=== PATIENT | male | born 1960 | race Caucasian/White ===

== ENCOUNTER 2017-07-25 07:13 | Inpatient (IN) | payer OTHER ==
[~2017-07-25 07:13] MED LIST: ACETAMINOPHEN 1,000 MG/100 ML BTL IV ONE; CEFAZOLIN 2 Gram 2 GM/50 ML BAG IVPB ONE; CELECOXIB 100 MG CAPSULE PO ONE; FAMOTIDINE 20MG TABLET PO ONE; MECLIZINE 25 MG TABLET PO ONE; METOCLOPRAMIDE 10 MG TABLET PO ONE
[2017-07-25] MEDS: RINGERS SOLUTION,LACTATED 1,000 ML IV SCH (11:30)
[2017-07-25] MEDS ORDERED: SENNOSIDES/DOCUSATE SODIUM UD CAPSULE PO PRN (11:30)
[2017-07-25] MEDS ORDERED: ONDANSETRON HCL IV 4 MG/2 ML VIAL IVP PRN (11:30)
[2017-07-25] MEDS ORDERED: METOCLOPRAMIDE HCL 10 MG/2 ML VIAL IVP PRN (11:30)
[2017-07-25] MEDS ORDERED: OXYCODONE HCL 5 MG TABLET PO PRN (11:30)
[2017-07-25] MEDS ORDERED: ZOLPIDEM TARTRATE 5 MG TABLET PO PRN (11:30)
[2017-07-25] MEDS ORDERED: TRAMADOL HCL 50 MG TABLET PO PRN ×2 (11:30)
[2017-07-25] MEDS ORDERED: AL HYDROX/MAG HYDROX 30ML UD PO PRN (11:30)
[2017-07-25] MEDS ORDERED: MAGNESIUM HYDROXIDE 30 ML UDC PO PRN (11:30)
[2017-07-25] MEDS: DIPHENHYDRAMINE HCL 25 MG CAPSULE PO PRN (12:49)
[2017-07-25] MEDS ORDERED: TRANEXAMIC ACID 1,000 MG in 0.9 % SODIUM CHLORIDE 100ML 100 ML IVPB ONE (13:00)
[2017-07-25] MEDS ORDERED: RINGERS SOLUTION,LACTATED 1,000 ML IV PRN (14:29)
[2017-07-25] MEDS: ACETAMINOPHEN 1,000 MG/100 ML BTL IV SCH ×2 (14:58→19:44)
--- NOTE | 2017-07-25 15:52 | Rehab Evaluation ---
Patient Information - Patient Information Diagnosis: OA right knee Ordered Treatment: PT Evaluate and Treat Status: Initial Evaluation Surgery: Yes (TKA right) Date of Surgery: 07/25/17 Past Medical/Surgical Hx: PAST MEDICAL/SURGICAL HISTORY Past Surgical History gastric sleeve sx; cholecystectomy; appy; right knee ACL. PMH - Respiratory Hx Respiratory Disorders Yes Hx Sleep Apnea No: negative tsting Hx of URI Yes PMH - Cardiovascular Hx Cardiovascular Disorders No Exercise Tolerance Good PMH - Neuro Hx Neurological Disorders No PMH - GI Hx Gastrointestinal Disorders Yes Hx Weight Loss/Weight Gain Yes: 20 lbs recent PMH - Hx Genitourinary Disorders No PMH - Endocrine Hx Endocrine Disorders No PMH - Musculoskeletal Hx Musculoskeletal Disorders Yes Hx Arthritis Yes PMH - Psych Hx Psychiatric Problems Yes Hx Anxiety Yes: anxiety nightmares PMH - Hematology/Oncology Hx Hematology/Oncology No Disorders Precautions: [place], Fall - Time With Patient Total Time Spent With Patient (Min): 35 Treatment Procedures: Detail (Patient seen bedside and in CPM machine with cryocuff on knee. Able to remove CPM and cryocuff and patient able to move supine to sit independently. Able to stand also independently with FWW and ambulated with assist with IV pole to bathroom with CGA. Patient not dizzy or nauseous and able to use bathroom independently and changed pants to own shorts and put on T-shirt. Patient then ambulated out of bathroom and into vanegas and down vanegas with assist with IV pole and FWW, WBAT right about 100 feet or so with good tolerance. Able to ambulate back to room and sat edge of bed and performed exercises for knee with good tolerance: march type hip and knee flexion, LAQ and knee flexion and ankle motions. Into bed with no assistance, replaced CPM, cryocuff and let nurse know that patient had no machine for compression on legs. Made sure call light and tray table close.) Subjective Information - Subjective Information Per Patient (Patient lives in two story home with one step in. He has his own walker now. Has OP PT set-up for after gets home. Wants as much PT as can have before goes home. Lives with who will help him and bathroom already set-up for best use.) Objective Data - Pain Pain Present: Yes Pain Scale Used: Numeric (1 - 10) (4/10) - Mental Status Patient Orientation: Oriented x3 - Visual Perception Appears within normal limits for therapeutic activities - ROM Within normal limits (Right knee about -5 degrees extension to 60 degrees flexion) - Strength/Tone Within normal limits (Right quads 3+/5, hamstrings 4/5, right hip 4/5) - Coordination Appears within normal limits for therapeutic activities - Bed Mobility Independent - Transfers Independent - Balance Balance Sitting: Good Balance Standing: Good - Sensation Intact (Some numbness yet from surgery to be expected.) - Gait Detail (Able to ambulate with FWW about 100 feet or so in vanegas then back to room without much stress and not weightbearing heavily on UES.) - Special Tests No Therapy Assessment - Therapy Assessment Detail (Patient is doing extremely well day of surgery. Willing to stay through day tomorrow (day after surgery) to make sure gets as much PT as possible since has to wait until Saturday next week for next OP PT.) Patient Education - Patient Education Teaching Topic: Equipment Use, Exercise/Activity Response: Return Demonstration Teaching Method: Demonstration Teaching Recipient: Patient Barriers To Learning: None Problem List - Problem List Physical Therapy Problem List: Detail (Some decrease in gait distance (not community distances yet). Haven't tried steps yet but able to move into/out of bed easily and do exercises without increased pain.) Goals - Goals Physical Therapy Goals: Patient will be independent with exercises needs to continue before OP PT starts, independent with gait community distances and able to negotiate steps with appropriate assistive device. Prognosis - Prognosis Good (Patient doing extremely well day of surgery and should be ready for discharge home tomorrow afternoon (day after surgery).) Plan - Plan Physical Therapy Plan: Continue PT day after surgery BID if stays in hospital all day, but if passes skills and meets goals to be discharged early, will assess at that time.
[2017-07-25] MEDS ORDERED: LIDOCAINE 2% MDV (20MG/ML) 20ML VIAL IV ONE (16:06)
[2017-07-25] MEDS ORDERED: KETOROLAC 30 MG/ML VIAL IVP ONE (16:06)
[2017-07-25] MEDS ORDERED: FENTANYL PF 100MCG/2ML VIAL IV ONE (16:06)
[2017-07-25] MEDS ORDERED: MIDAZOLAM HCL 2MG/2ML VIAL IV ONE (16:06)
[2017-07-25] MEDS ORDERED: ONDANSETRON HCL IV 4 MG/2 ML VIAL IVP ONE (16:06)
[2017-07-25] MEDS ORDERED: DIPHENHYDRAMINE HCL IV 50 MG/ML VIAL IVP ONE (16:06)
[2017-07-25] MEDS ORDERED: PROPOFOL 10 MG/ML VIAL IV ONE (16:06)
[2017-07-25] MEDS ORDERED: HYDROMORPHONE HCL 2 MG/ML VIAL IV ONE (16:06)
[2017-07-25] MEDS ORDERED: TRANEXAMIC ACID 1,000 MG/10 ML ML IV ONE (16:10)
[2017-07-25] MEDS ORDERED: BUPIVACAINE 0.75% W/EPI MPF 30ML VIAL IVP ONE (16:10)
[2017-07-25] MEDS ORDERED: BUPIVACAINE LIPOSOME 266MG/20ML VIAL IV ONE (16:10)
[2017-07-25] MEDS: CEFAZOLIN 2 Gram 2 GM/50 ML BAG IVPB SCH (16:42)
[2017-07-25] MEDS ORDERED: FONDAPARINUX 2.5 MG/0.5 ML SYR SQ SCH (18:00)
[2017-07-25] MEDS: OXYCODONE HCL 5 MG TABLET PO PRN ×2 (18:24→22:31)
[2017-07-25] MEDS: HYDROMORPHONE HCL 1 MG/ML SYRINGE IVP PRN (19:56)
[2017-07-25] MEDS ORDERED: TRAZODONE 50 MG TABLET PO SCH (22:00)
[2017-07-25] MEDS ORDERED: SERTRALINE HCL 50 MG TABLET PO SCH (22:00)
[2017-07-26] MEDS: CEFAZOLIN 2 Gram 2 GM/50 ML BAG IVPB SCH ×2 (00:24→09:40)
[2017-07-26] MEDS: HYDROMORPHONE HCL 1 MG/ML SYRINGE IVP PRN ×5 (00:27→10:03)
[2017-07-26] MEDS: ACETAMINOPHEN 1,000 MG/100 ML BTL IV SCH (02:02)
[2017-07-26] MEDS ORDERED: LIDOCAINE UROJECT 10 ML APPL MM ONE (02:25)
[2017-07-26] MEDS: OXYCODONE HCL 5 MG TABLET PO PRN ×2 (03:00→07:34)
[2017-07-26] MEDS: RINGERS SOLUTION,LACTATED 1,000 ML IV SCH (04:24)
[2017-07-26 07:10] LABS: HEMATOCRIT 37.2 % (42.0-52.0); HEMOGLOBIN 12.4 gm/dl (14.0-18.0); MEAN CELL VOLUME 86.3 fl (81-97); MEAN CORPUSCULAR HGB CONC 33.3 g/dl (32-36); MEAN PLATELET VOLUME 9.1 fl (7.4-10.4); PLATELET COUNT 184 K/uL (130-400); RED BLOOD COUNT 4.31 M/uL (4.40-5.70); RED CELL DISTRIBUTION WIDTH 13.1 % (11.5-14.5); WHITE BLOOD COUNT W/O DIFF 6.9 K/uL (4.2-12.2)
[2017-07-26 07:28] LABS: MEAN CORPUSCULAR HEMOGLOBIN 28.7 pg (27-33)
[2017-07-26] MEDS: DIPHENHYDRAMINE HCL 25 MG CAPSULE PO PRN (09:44)
--- NOTE | 2017-07-26 10:41 | Rehab Evaluation ---
Patient Information - Patient Information Diagnosis: OA right knee Ordered Treatment: OT Evaluate and Treat Status: Initial Evaluation Surgery: Yes (TKA right) Date of Surgery: 07/25/17 Past Medical/Surgical Hx: PAST MEDICAL/SURGICAL HISTORY Past Surgical History gastric sleeve sx; cholecystectomy; appy; right knee ACL. PMH - Respiratory Hx Respiratory Disorders Yes Hx Sleep Apnea No: negative tsting Hx of URI Yes PMH - Cardiovascular Hx Cardiovascular Disorders No Exercise Tolerance Good PMH - Neuro Hx Neurological Disorders No PMH - GI Hx Gastrointestinal Disorders Yes Hx Weight Loss/Weight Gain Yes: 20 lbs recent PMH - Hx Genitourinary Disorders No PMH - Endocrine Hx Endocrine Disorders No PMH - Musculoskeletal Hx Musculoskeletal Disorders Yes Hx Arthritis Yes PMH - Psych Hx Psychiatric Problems Yes Hx Anxiety Yes: anxiety nightmares PMH - Hematology/Oncology Hx Hematology/Oncology No Disorders Premorbid Status: Detail (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 Spouse is home during the day and will be available to assist when needed. Pt will be getting home PT once d/c'd from [facility] that will begin on 07/30/17.) Precautions: [place], Fall - Time With Patient Total Time Spent With Patient (Min): 15 Subjective Information - Subjective Information Per Patient (Pt wanting to go home as soon as possible however, they are waiting until pt can urinate independently w/o catheter.) Objective Data - Pain Pain Present: Yes Pain Intensity: 4 (R knee) Pain Scale Used: Numeric (1 - 10) - Mental Status Patient Orientation: Oriented x3 - Visual Perception Appears within normal limits for therapeutic activities - ROM Within normal limits (BUE's) - Strength/Tone Within normal limits (BUE's) - Coordination Appears within normal limits for therapeutic activities - Bed Mobility Independent - Transfers Independent (sit<>stand t/f) - Balance Balance Sitting: Good - Sensation Intact - ADL's/IADL's Detail (Pt ind. with LB drsg using modified drsg technique and is able to verbalize understanding of steps. Pt states he completed toileting w/ PT and was ind. w/ clothing management. Pt able to don/doff L sock ind. Able to doff R sock but requires assist to don. Pt states spouse will assist w/ sock/shoe don and has no concerns about this. Discussed wrapping technique of incision during showering to prevent water/soap saturation for infection purposes.) Therapy Assessment - Therapy Assessment Detail (Pt ind. and safe w/ pants don/doff and UB drsg. He will have spouse assist w/ sock and shoe don until pain decreases and ROM in R knee improves. Pt able to verbalize understanding of wrapping technique of R knee during showering to help prevent infection.) Patient Education - Patient Education Teaching Topic: Other (modified drsg technique) Response: Verbalize Understanding Teaching Method: Discussion Teaching Recipient: Patient Barriers To Learning: None Problem List - Problem List Physical Therapy Problem List: Detail (Some decrease in gait distance (not community distances yet). Haven't tried steps yet but able to move into/out of bed easily and do exercises without increased pain.) Goals - Goals Physical Therapy Goals: Patient will be independent with exercises needs to continue before OP PT starts, independent with gait community distances and able to negotiate steps with appropriate assistive device. Prognosis - Prognosis Good Plan - Plan Physical Therapy Plan: Continue PT day after surgery BID if stays in hospital all day, but if passes skills and meets goals to be discharged early, will assess at that time. Occupational Therapy Plan: Pt does not require further inpatient OT services and will be d/c'd at this time.
--- NOTE | 2017-07-26 11:11 | Physical Therapy Tx Note ---
Physical Therapy Tx Note - Treatment Note Tolerated: Good Total Time Spent With Patient: 30 Physical Therapy Tx Note: Detail (Patient states right knee swollen and sore today. Patient was reclined in bed upon MOTEL MANAGER arrival. Patient transferred supine to sit independently. Patient transferred sit to and from stand indepenently. Patient ambulated 326 feet with wheeled walker SBA x1. Patient ascended and descended 3 steps using stairwell railing and walker CGA x1. Patient performed the following exercises x10 reps each seated on edge of bed: quad sets, hamstring sets, seated heel raises, seated toe raises, glut squeezes , seated heel slides, and adductor squeeze. Patient transferred sit to supine independently. Patient tolerated treatment well. Patient displays good understanding of exercises and stair climbing. Patient discharged from inpatient PT at this time, due to patient passing all inpatient PT goals.) Physical Therapy Problem List: Detail (Some decrease in gait distance (not community distances yet). Haven't tried steps yet but able to move into/out of bed easily and do exercises without increased pain.) Physical Therapy Goals: Patient will be independent with exercises needs to continue before OP PT starts, independent with gait community distances and able to negotiate steps with appropriate assistive device. Prognosis: Good Physical Therapy Plan: Patient is discharged from inpatient PT at this time, as patient passed all inpatient PT goals.
[2017-07-26] MEDS ORDERED: ACETAMINOPHEN 325 MG TAB PO PRN (11:30)
[2017-07-26] MEDS ORDERED: HYDROCODONE/APAP 7.5/325MG TABLET PO PRN ×2 (11:30)
[2017-07-26] MEDS ORDERED: OXYCODONE/APAP 7.5MG/325MG TABLET PO PRN ×2 (11:30)
--- NOTE | 2017-07-26 12:31 | Operative Note ---
DATE OF SURGERY: 07/25/2017 Surgeon: Rush Berrios DO PREOPERATIVE DIAGNOSES: 1. Osteoarthritis of the right knee. 2. Retained hardware of the right tibia. POSTOPERATIVE DIAGNOSES: 1. Osteoarthritis of the right knee. 2. Retained hardware of the right tibia. OPERATION: 1. Right total knee arthroplasty. 2. Removal of screw, right tibia. PROCEDURE: This 56-year-old male was taken to the operating room and placed in the supine position on the operating room table. A spinal anesthetic was administered and the right lower extremity was elevated. It was prepped with Hibiclens and draped in the usual sterile fashion. All scrub personnel wore personal isolation suits. After exsanguination and tourniquet elevation to 300 mmHg, an anterior longitudinal midline incision was made followed by a medial parapatellar arthrotomy incision. An intracondylar drill hole was made for the intramedullary alignment hilda, and because of the patient's flexion contracture, an additional 2 mm of bone was taken off the femur. After making a 6-degree valgus 11 mm cut on the distal femur, the wafer of bone was removed. Sizing jig was affixed, and a size 80 was seen to be the appropriate size in the anterior-posterior dimension. A size 75 was clearly going to notch the anterior femur even with moving the pin sites anteriorly 2 mm. We decided to use an 80 and the 4-in-1 cutting block was then pinned in 3 degrees of external rotation. The appropriate cuts were made and the wafers of bone were removed. We then directed our attention to the proximal tibia, and an extramedullary alignment guide was used to cut the proximal tibia referencing an 8 mm cut off the lateral tibial plateau. We tried a 10 mm measurement but this seemed as though this was too much bone to be removed, and subsequently the 8 was removed. After setting the cutting block in the appropriate position, a 3-degree posterior slope cut was made, and the wafer of bone was removed. We subsequently removed remnants of the menisci and large osteophytes which were present in the posterior aspect of the joint. These were present in both the medial and the lateral sides. With all osteophytes removed, the tibia was sized to a size 83. The stem punch was used. The [place] screw which had previously been placed in the patient's tibia from remote anterior cruciate ligament reconstruction, this left somewhat of a defect in the proximal tibia which was not large. The tibia was sized and the stem punch was used. The wound copiously irrigated with pulse lavage, lactated Ringer's solution. Trial components inserted and a 10 mm bearing was seen to be the appropriate size giving us full extension of the knee and excellent flexion easily to 120-125 degrees with no varus or valgus instability. The patellofemoral joint was stable, and we cut the patella and restored it to anatomic height with a 37 x 10 mm patella, and this also was stable. We then removed all trial components and the wound again copiously irrigated with pulse lavage, lactated Ringer's solution. All components were cemented, and the excess cement was removed after the insertion of each component. The bony surfaces were dried and initially the tibial baseplate was cemented followed by the insertion of the tibial bearing. Subsequently the femur and patella were cemented into place. Once the cement had hardened, the excellent was removed. Exparel was injected into the posterior, medial, and lateral corners of the joint before insertion of the final components and the remainder of the Exparel injected into the periosteum and joint capsule of the proximal tibia and distal femur after final components had been inserted. The knee was again taken through range of motion and found to be stable. The drain was placed through a separate stab incision, and the arthrotomy incision was closed with a #2 Vicryl. The subcutaneous tissue was closed with 0 Vicryl and the skin was stapled. Sterile dressings applied with a Polar Care. The patient was taken to the recovery room in satisfactory condition. GROSS PATHOLOGY: This patient demonstrated severe osteoarthritis of the right knee with large osteophytes present posteriorly. In addition, a retained [place] screw was present in the proximal tibia, and this was removed in the manner described above. Final components inserted were a [employer] size 80 femur, a size 83 tibial baseplate, a 10 mm anterior stabilized D1 bearing, and a 37 x 10 mm patella was used. [facility]
--- NOTE | 2017-07-30 11:30 | Discharge Summary ---
DATE OF ADMISSION: 07/25/2017 DATE OF DISCHARGE: 07/26/2017 ADMITTING DIAGNOSIS: Osteoarthritis of the right knee. DISCHARGE DIAGNOSIS: Osteoarthritis of the right knee. OPERATIVE PROCEDURE: Elective right total knee arthroplasty. HOSPITAL COURSE: This 56-year-old male was admitted to the hospital for elective total knee arthroplasty and tolerated the operative procedure well. He progressed satisfactorily with physical therapy and was cleared for discharge. The patient showed no signs of complication during the course of his hospitalization. He will be discharged with outpatient physical therapy. He was instructed to wear her TAI hose during the day and remove them at night. He will take aspirin 325 mg daily for 2 weeks. He was given a prescription for Percocet 7.5/325, #80, 1-2 every 6 hours as necessary for pain. Routine wound care instructions were given. He will follow up in 2 weeks. Should he have any problems prior to being seen, he was instructed to call my office. AMARJIT
== END 2017-07-26 13:19 | disposition home or self-care (01) | DRG 470 ==
LOC: MEDSURG 07:13
PROVIDERS: ADMIT Orthopaedic Surgery; ATTEND Orthopaedic Surgery
PROC: 0QPG04Z Removal of Internal Fixation Device from Right Tibia, Open Approach (ICD-10-PCS; 2017-07-25)
PROC: 0SRC069 Replacement of Right Knee Joint with Oxidized Zirconium on Polyethylene Synthetic Substitute, Cemented, Open Approach (ICD-10-PCS; principal; 2017-07-25 09:30)
DX: M17.11 Unilateral primary osteoarthritis, right knee (principal); Z47.2 Encounter for removal of internal fixation device
CPT/HCPCS: 85025; 94760; 97110; 97165; 97530; J1170; J1200; J1885; J2405; J3490; J7120

== ENCOUNTER 2017-09-17 10:05 | Day surgery (SDC) | payer OTHER ==
[~2017-09-17 10:05] MED LIST changes: -CELECOXIB 100 MG CAPSULE PO ONE
[2017-09-17] MEDS ORDERED: OXYCODONE HCL/APAP 5MG/325MG TABLET PO ONE (10:06)
[2017-09-17] MEDS ORDERED: FENTANYL PF 100MCG/2ML VIAL IV ONE (10:06)
[2017-09-17] MEDS ORDERED: KETOROLAC 30 MG/ML VIAL IVP ONE (10:06)
[2017-09-17] MEDS ORDERED: PROPOFOL 10 MG/ML VIAL IV ONE (10:06)
[2017-09-17] MEDS ORDERED: LIDOCAINE 2% MDV (20MG/ML) 20ML VIAL IV ONE (10:06)
--- NOTE | 2017-09-18 12:30 | Operative Note ---
DATE OF SURGERY: 09/17/2017 Surgeon: Rush Berrios DO PREOPERATIVE DIAGNOSIS: Extension contracture of the right knee. POSTOPERATIVE DIAGNOSIS: Extension contracture of the right knee. OPERATION: Manipulation under anesthesia, right knee. DESCRIPTION OF PROCEDURE: This 57-year-old male was taken to the operating room, placed in the supine position on the operating room table where general anesthesia was induced. The right lower extremity was then taken through range of motion lacking just a couple of degrees of full extension. It flexed to approximately 85 degrees. Under gentle manipulation, the knee was manipulated to 110 degrees. It was then taken passively to full extension and then taken again back to 110 degrees in full extension and the patient seemed to tolerate this well. The knee was not unstable and he was awakened and taken to the recovery room in satisfactory condition. GROSS PATHOLOGY: The patient had total knee arthroplasty and developed extension contracture afterwards. He started at about 90-95 degrees of flexion and was really not able to get past that. Manipulation was performed as described above to get him to 110 degrees. He will continue with his rehab program. AMARJIT
== END 2017-09-17 12:47 | disposition home or self-care (01) ==
LOC: SUR 10:05
PROVIDERS: ATTEND Orthopaedic Surgery
DX: M24.561 Contracture, right knee (principal)
CPT/HCPCS: 27570; 01380; J1885; J3010